=== PATIENT | female | born 1950 | race Caucasian/White ===

== ENCOUNTER 2017-09-28 06:01 | Day surgery (SDC) | payer MEDICARE ==
[~2017-09-28 06:01] MED LIST: Lactated Ringer's 500 ML IV ONE; Phenylephrine 2.5% Opht Soln OS SCH; Tropicamide 1% Opht SOLUTION OS SCH
[2017-09-28] MEDS ORDERED: Lactated Ringer's 500 ML IV ONE (07:00)
[2017-09-28] MEDS ORDERED: Povidone Iodine Ophthalmic 5% Soln ONE (07:31)
[2017-09-28] MEDS ORDERED: Carbachol 0.01% IO ONE ×2 (07:31→07:41)
[2017-09-28] MEDS ORDERED: Lidocaine 2% MPF (5 ml) Inj ONE (07:32)
[2017-09-28] MEDS ORDERED: Tobramycin/Dexamethasone OPHT OINT ONE (07:32)
[2017-09-28] MEDS ORDERED: Tetracaine 0.5% Ophth (OR ONLY) ONE (07:32)
[2017-09-28] MEDS ORDERED: Hyaluronidase Human, Recombi 150 U/ML VIAL ONE (07:33)
[2017-09-28] MEDS ORDERED: Chondroitin/Hyaluronate Opth Syringe KIT (0.55 ml-0.5 ml) IO ONE (07:33)
[2017-09-28] MEDS ORDERED: Midazolam 2 MG/2 ML VIAL ONE (07:52)
[2017-09-28] MEDS ORDERED: Propofol 10 mg/ml Inj (20 ML) ONE (07:53)
[2017-09-28 08:55] VITALS: RESP 18
[2017-09-28 10:28] VITALS: BP 136/67; PULSE 73; TEMP 98.6; O2SAT 100
--- NOTE | 2017-09-28 19:50 | OP ---
PROCEDURE DATE: 09/28/2017 PREOPERATIVE DIAGNOSIS: Matured nuclear cataract, left eye. POSTOPERATIVE DIAGNOSIS: Matured nuclear cataract, left eye. OPERATIVE PROCEDURE: Cataract extraction with lens implant, left eye. SURGEON: Jayy Cabezas MD ANESTHESIA: Retrobulbar block. COMPLICATIONS: None. ESTIMATED BLOOD LOSS: Zero. DESCRIPTION OF PROCEDURE: The patient was brought to the operating room and properly identified. Anesthesia staff administered intravenous sedation and retrobulbar block was given to the surgical eye. The patient was then prepped and draped in the usual sterile fashion. Attention was turned to the surgical eye. A lid speculum was placed into interpalpebral fissure. Sitting temporally, two paracentesis incisions were made. The anterior chamber was filled with viscoelastic and a triplanar clear corneal incision was made. Using a cystitome, anterior capsular leaflet was created. Utrata forceps were used to create a continuous curvilinear capsulorrhexis. Balanced salt solution on a cannula was used to hydrodissect and hydrodelineate the lens. The lens was then phacoemulsified with no complications. Automated irrigation and aspiration was used to remove the cortex. Viscoelastic was used to deepen the anterior chamber. The lens was placed in the capsular bag. Automated irrigation and aspiration was used to remove the viscoelastic. The anterior chamber was filled with Miochol. The wounds were hydrated with balanced salt solution. There was noted to be no leak at the end of the case and the lens was well positioned. The lid speculum was removed. The eye was given antibiotics and steroids and covered with a patch and shield. The patient was returned to the recovery room in stable condition. Jayy Cabezas MD
== END 2017-09-28 09:30 | disposition home or self-care (01) ==
LOC: C.SDS 06:01
PROVIDERS: ATTEND Ophthalmology
DX: H25.13 Age-related nuclear cataract, bilateral (principal)
CPT/HCPCS: 66984; 82948; J2250; J2704; J3470; J7120; V2632

== ENCOUNTER 2017-10-26 06:49 | Day surgery (SDC) | payer MEDICARE ==
[~2017-10-26 06:49] MED LIST changes: +Tropicamide 0.5% Opht Sol OS SCH; -Tropicamide 1% Opht SOLUTION OS SCH
[2017-10-26] MEDS ORDERED: Lidocaine 2% MPF (5 ml) Inj ONE (07:26)
[2017-10-26] MEDS ORDERED: Chondroitin/Hyaluronate Opth Syringe KIT (0.55 ml-0.5 ml) IO ONE (07:26)
[2017-10-26] MEDS ORDERED: Tetracaine 0.5% Ophth (OR ONLY) ONE (07:26)
[2017-10-26] MEDS ORDERED: Carbachol 0.01% IO ONE (07:26)
[2017-10-26] MEDS ORDERED: Hyaluronidase Human, Recombi 150 U/ML VIAL ONE (07:26)
[2017-10-26] MEDS ORDERED: Povidone Iodine Ophthalmic 5% Soln ONE (07:26)
[2017-10-26] MEDS ORDERED: Lactated Ringer's 1,000 ML IV ONE (07:46)
[2017-10-26] MEDS: Tobramycin/Dexamethasone OPHT OINT ONE ×2 (09:12→09:33)
[2017-10-26] MEDS ORDERED: Midazolam 2 MG/2 ML VIAL ONE (09:24)
[2017-10-26 10:08] VITALS: O2SAT 100
[2017-10-26 10:37] VITALS: BP 162/55; PULSE 62; RESP 21; TEMP 97.9
--- NOTE | 2017-10-26 19:29 | OP ---
Copied To: Jayy Cabezas MD Attending MD: Jayy Cabezas MD PROCEDURE DATE: 10/26/2017 PREOPERATIVE DIAGNOSIS: Complex mature cataract, right eye. POSTOPERATIVE DIAGNOSIS: Complex mature cataract, right eye. 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 SURGEON: Jayy Cabezas MD ANESTHESIA: Retrobulbar block. COMPLICATIONS: None. DESCRIPTION OF PROCEDURE: The patient was brought to the operating room and properly identified. Anesthesia staff administered intravenous sedation and retrobulbar block was given to the surgical eye. The patient was then prepped and draped in the usual sterile fashion. Attention was turned to the surgical eye. A lid speculum was placed into interpalpebral fissure. Sitting temporally, two paracentesis incisions were made. The anterior chamber was filled with viscoelastic and a triplanar clear corneal incision was made. Using a cystitome, anterior capsular leaflet was created. Utrata forceps were used to create a continuous curvilinear capsulorrhexis. Balanced salt solution on a cannula was used to hydrodissect and hydrodelineate the lens. The lens was then phacoemulsified with no complications. Automated irrigation and aspiration was used to remove the cortex. Viscoelastic was used to deepen the anterior chamber. The lens was placed in the capsular bag. Automated irrigation and aspiration was used to remove the viscoelastic. The anterior chamber was filled with Miochol. The wounds were hydrated with balanced salt solution. There was noted to be no leak at the end of the case and the lens was well positioned. The lid speculum was removed. The eye was given antibiotics and steroids and covered with a patch and shield. The patient was returned to the recovery room in stable condition. ADDENDUM: Due to the pupil being very small, iris hooks were used to help dilate the pupil and facilitate the surgery. Jayy Cabezas MD
== END 2017-10-26 10:40 | disposition home or self-care (01) ==
LOC: C.SDS 06:49
PROVIDERS: ATTEND Ophthalmology
DX: H26.9 Unspecified cataract (principal)
CPT/HCPCS: 66982; 82948; J2250; J3010; J3470; J7120